=== PATIENT | male | born 1955 | race Caucasian/White ===

== ENCOUNTER 2020-03-01 12:11 | Observation (INO) | payer BC, SELFPAY ==
[2020-03-01] VITALS (7 sets, daily range): BP systolic 91–137; BP diastolic 50–77; PULSE 45–87; RESP 14–18; TEMP 36.4–37; O2SAT 94–99; BMI 25.9
--- NOTE | 2020-03-01 12:16 | ED_ITS ---
HPI - Chest Pain General: Chief Complaint: Chest Pain Stated Complaint: CP Time Seen by Provider: 03/01/20 12:16 History of Present Illness: HPI narrative: Pt states he woke up having chest heaviness that makes him feel short of breath. He states he has never had this before, it made him throw up 3 times today. He denies any cough or fever. He states he had a stress test about 4 years ago and it was negative. Nothing makes his pain worse or better MD complaint: chest heaviness Onset (ago): hour(s) (3) Timing of current episode: constant Prior episodes: No Onset: during rest Pain location: substernal Pain radiation: none Severity: severe Pain scale (0-10): 5 Quality: heaviness Relieving factors: nitroglycerin (ems placed paste) and medication-other (asa) Exacerbating factors: nothing Associated symptoms: Reports dyspnea, nausea and vomiting; Deny fever(s) Treatment prior to arrival: aspirin and nitroglycerin Review of Systems General: Reports: 10 or more systems reviewed and unremarkable except in HPI and below Const: Denies: fever, chills or fatigue ENMT: Denies: throat pain Card: Reports: chest pain; Denies: edema, lightheadedness or pre-syncope Resp: Reports: shortness of breath GI: Reports: nausea and vomiting Musc: Denies: back pain or extremity swelling Skin/Breast: Denies: rash Neuro: Denies: headache, numbness in extremities or weakness in extremities PFS ED PFSH: Social History Smoking and tobacco status: never smoked Physical Exam Const: COMMON NORMALS: no apparent distress and oriented x3 GENERAL APPEARANCE: cooperative; not in distress HENMT: COMMON NORMALS: normocephalic HEAD & SCALP: normal to inspection and normocephalic MOUTH: oral and palatal mucosa normal and lip normal THROAT: posterior oropharynx normal and tonsils normal Neck/C-Spine: COMMON NORMALS: full ROM, no lymphadenopathy, supple and no meningeal signs GENERAL: Yes normal visual inspection and Yes trachea midline Chest: COMMONS NORMALS: inspection of chest normal Resp: COMMON NORMALS: normal respiratory effort and clear to auscultation bilaterally EFFORT & INSPECTION: Yes able to speak in complete sentences and No respiratory distress AUSCULTATION: clear to auscultation bilaterally, no rales, no rhonchi and no wheezes Cardio: COMMON NORMALS: regular rate, regular rhythm, S1 normal heart sound, S2 normal heart sound and no murmurs RATE: regular rate RHYTHM: regular rhythm HEART SOUNDS: S1 normal and S2 normal PERIPHERAL PULSES: radial pulses present and dorsalis pedis pulses present GI: COMMON NORMALS: normal to inspection, nondistended, normoactive bowel sounds, soft to palpation and non-tender INSPECTION: Yes normal to inspection AUSCULTATION: Yes normoactive bowel sounds PALPATION: Yes soft, No tender, No guarding and No rigid RECTAL EXAM: Yes deferred : COMMON NORMALS: Yes no CVA tenderness BLADDER/KIDNEY EXAM: Yes no CVA tenderness Back/Pelvis: COMMON NORMALS: no CVA tenderness Extremity: COMMON NORMALS: normal to inspection, full ROM, normal capillary refill, no calf tenderness and no pedal edema Neuro: COMMON NORMALS: oriented x3, CN's II-XII intact bilaterally, moves all extremities and no focal motor deficits MENINGEAL SIGNS: Yes no meningeal signs Skin: COMMON NORMALS: no rashes or lesions noted GENERAL SKIN EXAM: no rashes or lesions noted Course Vital Signs: Vital signs: Vital Signs Temperature 97.9 F 03/01/20 12:11 Pulse Rate 58 L 03/01/20 12:55 Respiratory Rate 18 03/01/20 13:08 Blood Pressure 115/69 03/01/20 12:55 Pulse Oximetry 98 03/01/20 12:55 MDM - Chest Pain MDM Narrative: Medical decision making narrative: Pt had no improvement from nitro so I have given him morphine.cxr is negative. D-dimer is negative. Pts hr went down to 39 and his bp is 100 systolic, he states he still has cp and feels like he will throw up so I will give him atropine0.5mg iv, waiting for labs to come back. He is not on any meds that will slow him down.I had given him morphine just prior to him going that low. Dr Dickerson states he will admit the pt and wants me to contact Dr Jewell. Dr Jewell states he will see the pt. Lab Data: Attestation: I reviewed the patient's lab results. Labs: Lab Results 04/09/20 04/09/20 04/09/20 Range/Units 12:34 12:34 12:34 WBC 9.5 (4.0-10.0) 10^3/ uL RBC 4.80 (4.1-5.3) 10^6/u L Hgb 15.1 (11.7-16.6) g/dL Hct 46.9 (42.0-52.0) % MCV 97.7 H (80-94) fL MCH 31.5 (28.0-34.0) pg MCHC 32.2 (30.0-36.0) g/dL RDW 13.0 (12.1-15.1) % Plt Count 286 (130-400) 10^3/c mm MPV 11.3 H (7.4-10.4) fL Neut % (Auto) 78.5 % Lymph % (Auto) 16.5 % [place] % (Auto) 3.8 % Eos % (Auto) 0.3 % Baso % (Auto) 0.4 % Neut # (Auto) 7.5 (1.8-7.7) 10^3/u L Lymph # (Auto) 1.6 (0.8-4.8) 10^3/u L [place] # (Auto) 0.4 (0.2-0.9) 10^3/u L Eos # (Auto) 0.0 (0.0-0.8) 10^3/u L Baso # (Auto) 0.0 (0.0-0.1) 10^3/u L Nucleated RBC % (a uto) 0 % Nucleated RBCs # 0.0 /100WBC D-Dimer 0.42 (0-0.59) ug/mIFE U Sodium 141 (136-145) mmol/L Potassium 4.1 (3.5-5.1) mmol/L Chloride 104 (98-107) mmol/L Carbon Dioxide 21 L (22-29) mmol/L Anion Gap 20.1 H (5-19) BUN 18 (8-23) mg/dL Creatinine 0.9 (0.7-1.2) mg/dL GFR Calculation 85.2 L (90-130) mL/min Glucose 136 H (65-115) mg/dL Calculated Osmolal ity 291 (285-295) mOsm/k g Calcium 10.0 (8.5-10.5) mg/dL Total Bilirubin 0.6 (0.15-1.2) mg/dL AST 16 (0-40) U/L ALT 17 (0-41) U/L Alkaline Phosphata se 73 (40-130) IU/L Troponin T Baselin e (0-15) ng/mL Total Protein 8.3 (6.6-8.7) g/dL Albumin 4.8 (3.5-5.2) g/dL Globulin 3.5 (1.3-4.6) g/dL 03/01/20 Range/Units 12:34 WBC (4.0-10.0) 10^3/ uL RBC (4.1-5.3) 10^6/u L Hgb (11.7-16.6) g/dL Hct (42.0-52.0) % MCV (80-94) fL MCH (28.0-34.0) pg MCHC (30.0-36.0) g/dL RDW (12.1-15.1) % Plt Count (130-400) 10^3/c mm MPV (7.4-10.4) fL Neut % (Auto) % Lymph % (Auto) % [place] % (Auto) % Eos % (Auto) % Baso % (Auto) % Neut # (Auto) (1.8-7.7) 10^3/u L Lymph # (Auto) (0.8-4.8) 10^3/u L [place] # (Auto) (0.2-0.9) 10^3/u L Eos # (Auto) (0.0-0.8) 10^3/u L Baso # (Auto) (0.0-0.1) 10^3/u L Nucleated RBC % (a uto) % Nucleated RBCs # /100WBC D-Dimer (0-0.59) ug/mIFE U Sodium (136-145) mmol/L Potassium (3.5-5.1) mmol/L Chloride (98-107) mmol/L Carbon Dioxide (22-29) mmol/L Anion Gap (5-19) BUN (8-23) mg/dL Creatinine (0.7-1.2) mg/dL GFR Calculation (90-130) mL/min Glucose (65-115) mg/dL Calculated Osmolal ity (285-295) mOsm/k g Calcium (8.5-10.5) mg/dL Total Bilirubin (0.15-1.2) mg/dL AST (0-40) U/L ALT (0-41) U/L Alkaline Phosphata se (40-130) IU/L Troponin T Baselin e 6 (0-15) ng/mL Total Protein (6.6-8.7) g/dL Albumin (3.5-5.2) g/dL Globulin (1.3-4.6) g/dL Imaging Data^: CXR: Radiologist's impression: [address] [address] XRay Report Signed Patient: Kashmir Khalil #: [id number] : 6Acct#:[id number] Age/Sex: 64 / MADM Date: 03/01/20 Loc: ERRoom/Bed: Attending Dr: Ordering Provider/Ordering MD: Ellen Brambila DO Date of Service: 03/01/20 Procedure(s): XR chest 1V portable [id number] Accession Number(s): [id number] Report Number: [id number] WS: [id number] CHEST XRAY TECHNIQUE: Portable chest. CLINICAL INFORMATION: shortness of breath COMPARISON: None. FINDINGS: Heart: Normal cardiac silhouette. Lungs: Lungs are clear. No consolidation or pleural effusion. Bones: Normal visualized bony structures. XR/XR chest 1V portable [id number] IMPRESSION: Normal chest Dictated By:Gil Ohsea MD Signed By:Gil Oshea MDSigned Date/Time:03/01/20 124 DD/ 1244 Discharge Plan Discharge Patient Disposition: Admitted As Inpatient Clinical Impression: Chest pain, Bradycardia with 31-40 beats per minute, Acute hypotension Condition: Stable Prescriptions: No Action paroxetine HCl 10 mg tablet 10 mg PO BEDTIME RF: 0 trazodone 50 mg tablet 50 mg PO BEDTIME RF: 0 eszopiclone 3 mg tablet 3 mg PO BEDTIME RF: 0 Referrals: Everette Camarena MD [Primary Care Provider] - Coding Level of Care Code ED Extension Service Agent for Chg Fwd Exam Comprehensive
--- NOTE | 2020-03-01 12:32 | XR_ITS ---
WS: [id number] CHEST XRAY TECHNIQUE: Portable chest. CLINICAL INFORMATION: shortness of breath COMPARISON: None. FINDINGS: Heart: Normal cardiac silhouette. Lungs: Lungs are clear. No consolidation or pleural effusion. Bones: Normal visualized bony structures. XR/XR chest 1V portable [id number] IMPRESSION: Normal chest
--- NOTE | 2020-03-01 12:33 | ECG_ITS ---
Measurements Intervals [place] Rate: 47 P: 59 [place]: 167 QRS: 51 QRSD: 105 T: 40 QT: 476 QTc: 425 SINUS BRADYCARDIA No previous ECG available for comparison Electronically Signed On 03-01-2020 15:30:53 CDT by Felice Lackey M.D. [id number]
[2020-03-01] MEDS: nitroglycerin 0.4 mg sublingual Tablet SUBLINGUAL (12:55)
[2020-03-01] MEDS: ondansetron 2 mg/ML SDV 2 mL 4 MG IVP (12:55)
[2020-03-01] MEDS: morphine 4 mg/mL SDV 1 mL IVP (13:08)
[2020-03-01 13:15] LABS: Basophils % 0.4 %; Eosinophils % 0.3 %; Hematocrit 46.9 % (42.0-52.0); Hemoglobin 15.1 g/dL (11.7-16.6); Lymphocytes # 1.6 10^3/uL (0.8-4.8); Lymphocytes % 16.5 %; Mean Corpuscular HGB Conc 32.2 g/dL (30.0-36.0); Mean Corpuscular Hemoglobin 31.5 pg (28.0-34.0); Mean Corpuscular Volume 97.7 fL (80-94); Mean Platelet Volume 11.3 fL (7.4-10.4); Monocytes # 0.4 10^3/uL (0.2-0.9); Monocytes % 3.8 %; Neutrophils # 7.5 10^3/uL (1.8-7.7); Neutrophils % 78.5 %; Nucleated Red Blood Cells % 0 %; Platelet Count 286 10^3/cmm (130-400); White Blood Count 9.5 10^3/uL (4.0-10.0)
[2020-03-01 13:23] LABS: D Dimer 0.42 ug/mIFEU (0-0.59)
[2020-03-01 13:30] LABS: Alanine Aminotransferase 17 U/L (0-41); Albumin Level 4.8 g/dL (3.5-5.2); Alkaline Phosphatase 73 IU/L (40-130); Anion Gap 20.1 (5-19); Aspartate Amino Transferase 16 U/L (0-40); Blood Urea Nitrogen 18 mg/dL (8-23); Carbon Dioxide 21 mmol/L (22-29); Chloride 104 mmol/L (98-107); Globulin 3.5 g/dL (1.3-4.6); Glomerular Filtration Rate 85.2 mL/min (90-130); Glucose 136 mg/dL (65-115); Osmolality Calculated 291 mOsm/kg (285-295); Potassium 4.1 mmol/L (3.5-5.1); Sodium 141 mmol/L (136-145); Total Bilirubin 0.6 mg/dL (0.15-1.2); Total Protein 8.3 g/dL (6.6-8.7)
[2020-03-01 13:32] LABS: Troponin(5th) Baseline 6 ng/mL (0-15)
[2020-03-01] MEDS: atropine 0.1 mg/mL Syr 10 mL 1 MG (13:40)
[2020-03-01] MEDS: sodium chloride 0.9% 1,000 ML 999 ML IV (13:45)
--- NOTE | 2020-03-01 13:59 | USCV_ITS ---
Kashmir Khalil Age: 64 Gender: M : 1955 Exam Date: 03/01/2020 17:13 Ordering Phys: Bubba Jewell MD ([email or web address]) Technologist: Yu Raman Exam Location: [facility] – [place] Indication: CHEST PAIN BP: / HR: 55 Rhythm: Sinus Technical Quality: MEASUREMENTS (Male / Female) Normal Values 2D ECHO LV Diastolic Diameter PLAX 4.2 cm 4.2 - 5.9 / 3.9 - 5.3 cm LV Systolic Diameter PLAX 2.9 cm LV Chamber Size 3.8 cm IVS Diastolic Thickness 1.3 cm 0.6 - 1.0 / 0.6 - 0.9 cm IVS Systolic Thickness 1.9 cm LVPW Diastolic Thickness 1.6 cm 0.6 - 1.0 / 0.6 - 0.9 cm LVPW Systolic Thickness 1.6 cm RV Chamber Size 3.9 cm LVOT Diameter 2.0 cm LV Ejection Fraction 2D Teich 60.9 % LV Ejection Fraction MOD 2C 67.9 % LV Ejection Fraction 2C AL 67.0 % LA Diameter 4.3 cm LA Width 3.4 cm LA Height 4.6 cm RA Width 3.6 cm RA Height 4.6 cm Aorta at Sinotubular Diameter 3.7 cm M-MODE LV Diastolic Diameter MM 5.8 cm 4.2 - 5.9 / 3.9 - 5.3 cm LV Systolic Diameter MM 3.4 cm LV Ejection Fraction MM Teich 71.0 % IVS Diastolic Thickness MM 1.4 cm 0.6 - 1.0 / 0.6 - 0.9 cm IVS Systolic Thickness MM 1.6 cm LVPW Diastolic Thickness MM 1.0 cm 0.6 - 1.0 / 0.6 - 0.9 cm LVPW Systolic Thickness MM 2.1 cm RV Diastolic Diameter MM 1.8 cm Aortic Annulus Diameter 4.2 cm LA Ao Ratio MM 1.0 MV E Point Septal Separation 0.7 cm DOPPLER AV Peak Velocity 147.0 cm/s LVOT Peak Velocity 92.0 cm/s AV Area Cont Eq vti 2.2 cm squared AV Area Cont Eq pk 2.0 cm squared MV Area PHT 9.6 cm squared Mitral E to A Ratio 1.1 MV E' Velocity 9.0 cm/s Mitral E to MV E' Ratio 6.2 Mitral E to LV E' Lateral Ratio 6.0 Mitral E to LV E' Septal Ratio 6.5 TR Peak Velocity 238.4 cm/s TR Peak Gradient 22.7 mmHg TR Mean Velocity 183.6 cm/s TR Mean Gradient 14.3 mmHg TR Velocity Time Integral 71.1 cm TV Peak E Velocity 67.0 cm/s Right Atrial Pressure 3.0 mmHg Pulmonary Artery Systolic Pressu 25.7 mmHg PV Peak Velocity 76.0 cm/s RV Acceleration Time 0.1 s RV Ejection Time 0.3 s RV AcT/ET 0.4 FINDINGS Left Ventricle Normal left ventricular size and systolic function, EF 62 %. No regional wall motion abnormalities. Mild left ventricular hypertrophy. Right Ventricle Possibly of normal size ejection fraction Right Atrium Possibly of normal size Left Atrium The left atrium is normal in size. Mitral Valve No gross abnormalities noted Aortic Valve Thickened aortic valve. Mild aortic valve regurgitation. Tricuspid Valve Not visualized well Pulmonic Valve Pulmonic valve not well visualized. Pericardium Normal pericardium without effusion. Aorta Plaque seen in the ascending aorta. The aortic root, above the level of sinuses measured 3.5 cm in diameter CONCLUSIONS Normal left ventricular size and systolic function, EF 62 %. Thickened aortic valve. Mild aortic valve regurgitation. No regional wall motion abnormalities. Minimal plaques, noted in the ascending aorta. Ascending aortic dimension, appears to be upper limit of normal size There is no pericardial effusion. There are no intracardiac masses. No similar previous studies are available for comparison. Dr Bubba Jewell MD [facility] (Electronically Signed) Final Date: 02 March 2020 11:07 S
--- NOTE | 2020-03-01 14:18 | US_ITS ---
WS: [id number] ULTRASOUND ABDOMEN LIMITED CLINICAL INFORMATION: epigastric pain COMPARISON: None. FINDINGS: Liver Size: Normal. Craniocaudal length: 17.1 cm. Echogenicity: Normal. Surface nodularity: None. Mass (size and location): Several simple appearing hepatic cysts the largest measuring 3.7 x 2.2 x 3. 1 cm Bile ducts Intrahepatic ducts: Normal. Common bile duct diameter: 0.4 cm. Gallbladder Normal. Gallstones: None. Gallbladder sludge: None. Gallbladder wall thickening: None. Pericholecystic fluid: None. Sonographic Kay sign: Absent. Pancreas Normal as visualized. Right kidney: Normal. Hydronephrosis: None. Size: 10.1 cm x 5.6 cm x 4.6 cm. Abdominal aorta and IVC Visualized portions are normal. Ascites: None. US/US gall bladder [id number] IMPRESSION: 1. A few incidental simple liver cysts the largest measuring 3.7 x 2.2 x 3.1 c m. 2. Normal gallbladder and common bile duct. 3. No hydronephrosis in right kidney.
[2020-03-01 14:29] LABS: Lipase 20 U/L (13-60)
--- NOTE | 2020-03-01 14:33 | ECG_ITS ---
Measurements Intervals [place] Rate: 57 P: 42 [place]: 176 QRS: 47 QRSD: 101 T: 27 QT: 444 QTc: 434 SINUS BRADYCARDIA WITH OCCASIONAL SUPRAVENTRICULAR PREMATURE COMPLEXES Compared to ECG 03/01/2020 12:18:32 No significant changes Electronically Signed On 03-02-2020 17:06:49 CDT by Bubba Jewell M.D. [id number]
--- NOTE | 2020-03-01 14:46 | P.HP_ITS ---
Providers/Chief Complaint Admitting Physician: Luis Felipe Dickerson MD Primary Care Provider: Everette Camarena MD Chief Complaint: CP History of Present Illness Kashmir Khalil is a 64 year old male presents to emerge department with abdominal pain that started shortly after he woke up this morning. He went to bed in his normal state of health. After he woke up he went to have coffee and noted some initially periumbilical discomfort which shortly after became epigastric. Describes as pressure 5 out of 10 and nonradiating. He became nauseous and reports having, minimal foamy emesis and mostly dry heaves. He became diaphoretic and short of breath. He denies previous history of the same. 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 In emergency department patient was given nitroglycerin with no improvement in his pain. His presenting heart rate was in the mid 40s to 50s. Patient receiv ed morphine and immediately dropped his heart rate to mid 30s along with developing hypotension. He was given fluids and gradually improved. Patient reports occasionally taking ibuprofen with last episode 2 days ago because of allergic nasal congestion . He denies any cough, fever or chills. He reports occasional heartburn but denies any hematochezia or melena. His EKG showed no acute findings. His initial troponin is negative. His liver enzymes and lipase are also negative. Patient is being placed for observation for further monitoring and evaluation. Dr. Jewell was initially consulted and I will cancel it as patient's bradycardia appears to be vasovagal and patient's chest/epigastric area discomfort does not appear to be cardiac and more suggestive of GI. Review of Systems Narrative: Except as mentioned above. Const: Denies: fever or chills Eyes: Denies: change in vision ENMT: Denies: throat pain or change in hearing Card: Denies: chest pain, edema or lightheadedness Resp: Denies: shortness of breath or productive cough GI: Reports: abdominal pain (Pressure-like pain in the epigastric area.), nausea and vomiting; Denies: difficulty swallowing, diarrhea, constipation, blood in stool or black tarry stool Musc: Denies: joint pain or joint swelling Skin/Breast: Denies: rash or redness Neuro: Denies: headache or weakness in extremities Psych: Denies: depression or suicidal ideation Endo: Denies: excessive sweating Philip/Lymph: Denies: easy bleeding or tender lymph nodes All/Imm: Denies: throat swelling Medications/Allergies Home Medications Medication Instructions Recorded Confirmed Last Taken Type eszopiclone 3 mg PO BEDTIME 03/01/20 03/01/20 02/29/20 History paroxetine HCl 10 mg PO BEDTIME 03/01/20 03/01/20 02/29/20 History trazodone 50 mg PO BEDTIME 03/01/20 03/01/20 02/29/20 History Allergies Allergy/AdvReac Type Severity Reaction Status Date / Time No Known Allergies Allergy Verified 03/01/20 12:17 PFSH Acute PFSH: Medical History (Updated 03/01/20 @ 14:54 by Luis Felipe Dickerson MD) Hemorrhoids Social History Smoking and tobacco status: never smoked Vitals/I&O/Wt Last Vital Signs Temp 97.9 F 03/01/20 12:11 Pulse 58 L 03/01/20 12:55 Resp 18 03/01/20 13:08 BP 115/69 03/01/20 12:55 Pulse Ox 98 03/01/20 12:55 Weight last 48 hrs Weight 91.626 kg Physical Exam Const: COMMON NORMALS: no apparent distress, oriented x3 and alert HENMT: COMMON NORMALS: normocephalic and head/scalp atraumatic HEAD & SCALP: normocephalic and atraumatic Eye: COMMON NORMALS: EOMs intact bilaterally, conjunctivae normal and no s cleral icterus CONJUNCTIVA: Yes conjunctivae normal Neck/C-Spine: COMMON NORMALS: no lymphadenopathy and no meningeal signs Lymph: LYMPHATIC: no lymphadenopathy noted Chest: COMMONS NORMALS: palpation of chest normal Resp: COMMON NORMALS: no use of accessory muscles and clear to auscultation bilaterally AUSCULTATION: clear to auscultation bilaterally Cardio: COMMON NORMALS: regular rate, regular rhythm and no murmurs RATE: regular rate RHYTHM: regular rhythm OTHER: No lower extremity edema GI: COMMON NORMALS: soft to palpation and non-tender PALPATION: Yes soft RECTAL EXAM: Yes deferred : COMMON NORMALS: Yes no CVA tenderness BLADDER/KIDNEY EXAM: Yes no CVA tenderness Back/Pelvis: COMMON NORMALS: no CVA tenderness and thoracic and lumbar spine normal to inspection Extremity: COMMON NORMALS: normal to inspection and normal capillary refill Neuro: COMMON NORMALS: oriented x3 and no focal motor deficits SENSORIUM/ORIENTATION: Yes alert MENINGEAL SIGNS: Yes no meningeal signs Psych: COMMON NORMALS: mental status grossly normal, thought process normal and cooperative THOUGHT PROCESS: normal thought process Skin: COMMON NORMALS: no rashes or lesions noted GENERAL SKIN EXAM: no rashes or lesions noted Data : 03/01/20 12:34 03/01/20 12:34 A&P Assessment and plan (1) Bradycardia with 31-40 beats per minute: This appears to be vasovagal. Status: Acute (2) Chest pain: Denies chest pain per se and reports epigastric area pressure-like discomfort which felt to be related to NSAID induced gastritis/peptic ulcer disease. Status: Acute Qualifiers: Chest pain type: precordial pain Qualified Code(s): R07.2 - Precordial pain (3) Acute hypotension: This is secondary to nitroglycerin and morphine and currently improved. Status: Acute Additional A&P Information Trend cardiac enzymes. Start patient on high-dose PPI and gentle IV hydration. Obtain gallbladder ultrasound. We will consult cardiology if troponin comes back positive otherwise we will closely monitor on telemetry. Attestations Medical Necessity Statement*: Patient was epigastric pain and bradycardia requires observation for close monitoring and treatment. I expect patient will require less than two midnights. Coding Level of Care Code Acute Adaptive Physical Education Specialist for Yuly Edwardo Diagnoses Bradycardia with 31-40 beats per minute R00.1 Chest pain R07.2 Chest pain type: precordial pain Acute hypotension I95.9
[2020-03-01 15:30] LABS: Troponin 5 2HR Delta 0 ABS# (0-10)
[2020-03-01] MEDS: lactated ringers 1,000 ML 75 ML IV (16:32)
[2020-03-01] MEDS: pantoprazole 40 mg SDV IVP (16:33)
--- NOTE | 2020-03-01 18:33 | ECG_ITS ---
Measurements Intervals [place] Rate: 45 P: 44 [place]: 168 QRS: 48 QRSD: 106 T: 23 QT: 479 QTc: 418 SINUS BRADYCARDIA Compared to ECG 03/01/2020 12:18:32 No significant changes Electronically Signed On 03-02-2020 17:06:52 CDT by Bubba Jewell M.D. [id number]
[2020-03-01 18:50] LABS: Troponin 5 6HR Delta 0 ng/L (0-12)
[2020-03-01] MEDS: PARoxetine 20 mg Tablet 10 MG PO (21:26)
[2020-03-01] MEDS: trazodone 50 mg Tablet PO (21:27)
[2020-03-02] VITALS: BP 91/53; PULSE 53; RESP 15; TEMP 36.8; O2SAT 92
[2020-03-02 00:55] LABS: Add Urine Culture? No; Add Urine Microscopic? YES; Bacteria Urine TRACE; Bilirubin Urine Neg (NEGATIVE); Blood Urine Neg (Negative); Glucose Urine UA 1+ (Normal); Ketones Urine 1+ (Negative); Leukocyte Esterase Urine Negative (Negative); Mucus Urine 4+; Nitrate Urine Negative (Negative); Protein Urine Neg (Negative); Renal Epithelial Cells Urine N /hpf; Specific Gravity, Urine 1.025 (1.005-1.030); Urine Appearance Hazy (CLEAR); Urine Color Yellow (Yellow); Urobilinogen Urine Norm (Negative); pH Urine 5 (5-7)
--- NOTE | 2020-03-02 01:47 | PC.NURSE ---
Up to bathroom. During this time, heart rate went from SB to SR with HR in 80's to 90's. Back to bed. Denies complaints. Just can't sleep. Will monitor.
[2020-03-02] MEDS: lactated ringers 1,000 ML 75 ML IV (02:25)
[2020-03-02] MEDS: pantoprazole 40 mg SDV IVP (02:25)
--- NOTE | 2020-03-02 03:02 | PC.NURSE ---
Patient complaining of a dull headache after not eating most of the day. Dr. Gusman notified with new order received for Tylenol 650mg PO every 6 hours as needed.
[2020-03-02] MEDS: acetaminophen 325 mg Tablet 650 MG PO (03:09)
[2020-03-02 04:00] VITALS: BP 112/67; PULSE 55; RESP 20; TEMP 37.1; O2SAT 94
[2020-03-02 08:00] VITALS: BP 132/76; PULSE 56; RESP 18; TEMP 36; O2SAT 95
[2020-03-02 08:52] VITALS: PULSE 65; O2SAT 95
--- NOTE | 2020-03-02 09:50 | PC.CHAP ---
Pastoral Care Encounter/Spiritual Assessment Type of Contact [] Declined allergy physician visit [] Patient/Family/Request visit [] Outpatient visit [] Follow-up visit [] Physician referral [] Code/Alert [x] Routine visit [] Staff referral [] Actively dying [] Patient sleeping [] Family support [] [] Out of room [] Palliative care [] [] Receiving care in room [] Pre-surgical visit [] Trauma [] Long length of stay [] ICU visit [] Other: Relational/Emotional Strength [] Patient feels connected with others/family/visitors/staff [] Distress [] Loneliness/isolation [] Abandonment Spirituality of Patient [] Person of Lin [] Attends Amish of their Lin [] Believes in Prayer [] Reads Bible or Yarsani materials [] There are Spiritual issues 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] Prayer [] Active listening [] Non-anxious presence [] Spiritual/emotional support [] Crisis/trauma care [] Spiritual counseling [] Bereavement support [] Provided bereavement packet [] Provided Bible/devotional materials [] Provided toy/stuffed animal, coloring book to patient or family member [] Provided Communion [] Anointing/[place] [] Salvation [x] Completed spiritual assessment [] Other: Impact on Illness or Injury [] Angry [] Fearful [] Anxious [] Often cries [] Exhaustion [] Unable to work [] Unable to attend adventist [] Unable to walk/stand [] Unable to read [] Unable to drive [] Unable to eat/drink [] Unable to sleep [] Unable to be with family [] Patient intubated [] Other: Summary Patient tired. Prayed for rest and comfort Time spent with patient 10min
[2020-03-02 11:28] VITALS: BP 117/74; PULSE 55; RESP 18; TEMP 36.9; O2SAT 95
--- NOTE | 2020-03-02 12:34 | PM.DCS ---
Discharge Providers Date of Admission: 03/01/20 13:51 Date of Discharge: March 02, 2020 Attending Provider at Admission: Luis Felipe Dickerson MD Attending Provider at Discharge: Luis Felipe Dickerson MD Primary Care Provider: Everette Camarena MD Diagnoses at Discharge Discharge Diagnosis (1) Bradycardia with 31-40 beats per minute: Status: Acute Problem details: Asymptomatic. Appears to be physiological with acute episode vasovagal in origin (2) Chest pain: Status: Acute Problem details: Patient denied chest pain and complained of epigastric area pain which felt to be related to NSAID induced gastritis/peptic ulcer disease Qualifiers: Chest pain type: precordial pain Qualified Code(s): R07.2 - Precordial pain (3) Acute hypotension: Status: Acute Problem details: Nitroglycerin and morphine induced. Improved (4) Gastritis due to nonsteroidal anti-inflammatory drug (NSAID): Status: Acute Reason for Visit Reason for Visit: Reason For Visit: Hospital Course Discharge Summary: Patient on chronic NSAID therapy presents with epigastric area pain. He developed hypotension and acute bradycardia to 30s after he received nitroglycerin and morphine. He showed no evidence of EKG changes and troponin remained negative. His epigastric area pain felt to be related to NSAID induced gastritis. He appears to have physiological asymptomatic bradycardia and this morning denied any complaints including shortness of breath or chest or abdominal pain. Reports that he tolerates oral intake and ambulate without difficulty. He feels strong enough to be dismissed home. Patient was told to avoid NSAIDs and use Tylenol as needed for pain. Given significant clinical improvement I will dismiss patient home on high-dose Protonix for at least 1 month. Patient will follow up with primary care physician and report if symptoms recur as he may need to have further evaluation with EGD. Physical Exam Const: COMMON NORMALS: no apparent distress and oriented x3 Resp: COMMON NORMALS: normal respiratory effort and clear to auscultation bilaterally AUSCULTATION: clear to auscultation bilaterally Cardio: COMMON NORMALS: regular rate, regular rhythm and S2 normal heart sound RATE: regular rate RHYTHM: regular rhythm HEART SOUNDS: S2 normal OTHER: No lower extremity edema GI: COMMON NORMALS: normal to inspection, nondistended, normoactive bowel sounds, soft to palpation and non-tender PALPATION: Yes soft Neuro: COMMON NORMALS: oriented x3 and no focal motor deficits Discharge Data Data Completed and Pending: Completed Studies During Hospitalization Category Date Time Status XR chest 1V zach ble [id number] Stat Exams 03/01/20 12:32 Completed US echo complete [CV echo complete* [id number]] Routine Ultrasound 03/01/20 13:59 Completed US gall bladder 7 [id number] Stat Ultrasound 03/01/20 14:18 Completed Labs from last 24 hours 03/01/20 03/01/20 03/01/20 23:50 18:28 14:36 WBC RBC Hgb Hct MCV MCH MCHC RDW Plt Count MPV Neut % (Auto) Lymph % (Auto) Ballard % (Auto) Eos % (Auto) Baso % (Auto) Neut # (Auto) Lymph # (Auto) Ballard # (Auto) Eos # (Auto) Baso # (Auto) Nucleated RBC % (a uto) Nucleated RBCs # D-Dimer Sodium Potassium Chloride Carbon Dioxide Anion Gap BUN Creatinine GFR Calculation Glucose Calculated Osmolal ity Calcium Total Bilirubin AST ALT Alkaline Phosphata se Troponin I 6 Hour 6.00 Troponin I Hi Sens Del 0 Troponin T Baselin e Troponin T 120 Min sarita 6.00 Delta Troponin T 0 Total Protein Albumin Globulin Lipase Urine Color Yellow Urine Appearance Hazy A Urine pH 5 Ur Specific Gravit y 1.025 Urine Protein Neg Urine Glucose (UA) 1+ Urine Ketones 1+ H Urine Blood Neg Urine Nitrate Negative Urine Bilirubin Neg Urine Urobilinogen Norm Ur Leukocyte Trisha ase Negative Urine RBC None Urine WBC None Ur Squamous Epith Cells None Ur Transition Epit h Cell None Ur Renal Epithelia l Cell N Urine Bacteria Trace Urine Mucus 4+ 03/01/20 03/01/20 03/01/20 12:34 12:34 12:34 WBC RBC Hgb Hct MCV MCH MCHC RDW Plt Count MPV Neut % (Auto) Lymph % (Auto) Ballard % (Auto) Eos % (Auto) Baso % (Auto) Neut # (Auto) Lymph # (Auto) Ballard # (Auto) Eos # (Auto) Baso # (Auto) Nucleated RBC % (a uto) Nucleated RBCs # D-Dimer Sodium 141 Potassium 4.1 Chloride 104 Carbon Dioxide 21 L Anion Gap 20.1 H BUN 18 Creatinine 0.9 GFR Calculation 85.2 L Glucose 136 H Calculated Osmolal ity 291 Calcium 10.0 Total Bilirubin 0.6 AST 16 ALT 17 Alkaline Phosphata se 73 Troponin I 6 Hour Troponin I Hi Sens Del Troponin T Baselin e 6 Troponin T 120 Min sarita Delta Troponin T Total Protein 8.3 Albumin 4.8 Globulin 3.5 Lipase 20 Urine Color Urine Appearance Urine pH Ur Specific Gravit y Urine Protein Urine Glucose (UA) Urine Ketones Urine Blood Urine Nitrate Urine Bilirubin Urine Urobilinogen Ur Leukocyte Trisha ase Urine RBC Urine WBC Ur Squamous Epith Cells Ur Transition Epit h Cell Ur Renal Epithelia l Cell Urine Bacteria Urine Mucus 03/01/20 03/01/20 12:34 12:34 WBC 9.5 RBC 4.80 Hgb 15.1 Hct 46.9 MCV 97.7 H MCH 31.5 MCHC 32.2 RDW 13.0 Plt Count 286 MPV 11.3 H Neut % (Auto) 78.5 Lymph % (Auto) 16.5 Ballard % (Auto) 3.8 Eos % (Auto) 0.3 Baso % (Auto) 0.4 Neut # (Auto) 7.5 Lymph # (Auto) 1.6 Ballard # (Auto) 0.4 Eos # (Auto) 0.0 Baso # (Auto) 0.0 Nucleated RBC % (a uto) 0 Nucleated RBCs # 0.0 D-Dimer 0.42 Sodium Potassium Chloride Carbon Dioxide Anion Gap BUN Creatinine GFR Calculation Glucose Calculated Osmolal ity Calcium Total Bilirubin AST ALT Alkaline Phosphata se Troponin I 6 Hour Troponin I Hi Sens Del Troponin T Baselin e Troponin T 120 Min sarita Delta Troponin T Total Protein Albumin Globulin Lipase Urine Color Urine Appearance Urine pH Ur Specific Gravit y Urine Protein Urine Glucose (UA) Urine Ketones Urine Blood Urine Nitrate Urine Bilirubin Urine Urobilinogen Ur Leukocyte Trisha ase Urine RBC Urine WBC Ur Squamous Epith Cells Ur Transition Epit h Cell Ur Renal Epithelia l Cell Urine Bacteria Urine Mucus Vitals: Last Vital Signs Temp 98.5 F 03/02/20 11:28 Pulse 55 L 03/02/20 11:28 Resp 18 03/02/20 11:28 BP 117/74 03/02/20 11:28 Pulse Ox 95 03/02/20 11:28 Discharge Plan Discharge Patient Disposition: Home, Self-Care Condition: Stable Prescriptions: New Protonix [address] for susp in packet 40 mg PO BID Qty: 60 RF: 0 acetaminophen 325 mg Tablet 650 mg PO Q6H PRN (Reason: Mild Pain) Qty: 60 RF: 0 Continued paroxetine HCl 10 mg tablet 10 mg PO BEDTIME RF: 0 trazodone 50 mg tablet 50 mg PO BEDTIME RF: 0 eszopiclone 3 mg tablet 3 mg PO BEDTIME RF: 0 Referrals: Everette Camarena MD [Primary Care Provider] - 4-7 days Discharge Diet: Advance as tolerated Discharge Activity: Increase activity as tolerated Activity Restrictions/Additional Instructions: Please call your doctor or present to emergency department if your condition worsens or you develop diarrhea, lightheadedness, fatigue or see blood in your stool or black stool. Please avoid any NSAIDs as we have discussed and use Tylenol as needed for pain. Should your symptoms recur please discuss with your doctor as you may need to be further evaluated with upper endoscopy. Please keep blood pressure and heart rate log 3 times daily to present to your physician next visit. Discharge Attestations Time Spent in Discharge Care*: greater than 30 min Quality Metrics Clinical Quality Measures During this hospital stay, did patient experience: None Coding Level of Care Code Acute [employer] for [employer] Diagnoses Bradycardia with 31-40 beats per minute R00.1 Chest pain R07.2 Chest pain type: precordial pain Acute hypotension I95.9 Gastritis due to nonsteroidal anti-inflammatory drug (NSAID) K29.60; T39.395A
[2020-03-02 14:17] VITALS: BP 117/74; PULSE 55; RESP 18; TEMP 36.9; O2SAT 95
--- NOTE | 2020-03-03 14:41 | PC.NURSE ---
called this nurse at hospital. explained that insurance had not approved protonix granules at [facility] pharmacy, so patient was unable to pick and shovel man prescription. Nurse offered to send prescription to [facility] as that is the only pharmacy open at this time, so patient can begin taking prescription. Patient's stated they would rather wait for [facility] to open on Thursday, March 05, to pick and shovel man prescription after insurance has authorized it. Nurse explained the risks of not taking discharge prescriptions as directed by hospitalists. Patient's verbalized understanding but continued to refuse [facility].
== END 2020-03-02 15:40 | disposition home or self-care (01) ==
LOC: ER 13:56 → MEDSURG 18:04
PROVIDERS: Admitting Provider Internal Medicine; Emergency Provider Emergency Medicine; Family Provider Family Medicine; PCP Family Medicine; Visit Provider Internal Medicine
DX: R00.1 Bradycardia, unspecified (principal); R07.2 Precordial pain; I95.9 Hypotension, unspecified; K29.60 Other gastritis without bleeding; Z79.1 Long term (current) use of non-steroidal anti-inflammatories (NSAID)
CPT/HCPCS: 12345; 36415; 71045; 76705; 80053; 81001; 83690; 84484; 85025; 85378; 93005; 93306; 96360; 96361; 96374; 96375; 99282; 99285; C9113; G0378; J0461; J2270; J2405; J7030